=== PATIENT | male | born 1950 | race Caucasian/White ===

== ENCOUNTER → 2021-07-29 | Day surgery (SDC) | payer OTHER ==
[~2021-07-29] VITALS: Ht 172.7 cm; Wt 95.3 kg
[~2021-07-29] MED LIST: ACETAMINOPHEN500 M1 PO; ALISKIREN150 MG PO; ALLEGRA ALLERG180 MG PO; ASPIRIN EC81 MG PO; BUMEX1 MG PO; COZAAR100 MG PO; DAILY VALUE1 EACH PO; DIGITEK125 MCG PO; HYDRALAZINE25 MG PO; LOPRESSOR50 MG PO; METFORMIN HCL500 MG PO; OZEMPIC1 MG/0.71 IJ; POTASSIUM CHLORIDE PO; PRAVACHOL20 MG PO; UROCIT-K10 MEQ PO; XARELTO10 MG PO
[2021-07-29 07:39] LABS: HCT 39.2 % (42.0-52.0); HGB 13.6 g/dl (13.2-18.0); MCH 31.8 pg (25.0-31.0); MCHC 34.7 g/dL (32.0-36.0); MCV 91.6 fL (78.0-100.0); MPV 10.8 fL (6.0-9.5); RBC 4.28 M/uL (4.70-6.00); RDW 12.1 % (11.5-14.0)
[2021-07-29 08:03] LABS: BILIRUBIN - TOTAL 0.7 mg/dL (0.2-1.0); BUN/CREAT RATIO (CALC) 28.4 RATIO; CREATININE 0.88 mg/dL (0.67-1.17); GLOBULIN (CALCULATION) 3.2 g/dL; POTASSIUM 3.6 mmol/L (3.5-5.1); TOTAL PROTEIN 7.2 g/dL (6.4-8.2)
== END | disposition home or self-care (01) ==
LOC: FAS 07:01
PROVIDERS: Surgery
DX: Z12.11 Encounter for screening for malignant neoplasm of colon (principal); E11.9 Type 2 diabetes mellitus without complications; Z86.010 Personal history of colon polyps; Z90.49 Acquired absence of other specified parts of digestive tract; Z95.0 Presence of cardiac pacemaker; Z79.01 Long term (current) use of anticoagulants; Z79.82 Long term (current) use of aspirin
CPT/HCPCS: 36415; 80053; J2250; J2704; J7120